=== PATIENT | male | born 1990 | race Caucasian/White ===

== ENCOUNTER 2017-01-03 02:01 | Emergency (ER) | payer OTHER ==
[~2017-01-03] VITALS: Ht 182.9 cm; Wt 154.5 kg
[2017-01-03 02:05] VITALS: Ht 182.9 cm; Wt 154.5 kg
--- NOTE | 2017-01-03 02:44 | ERD ---
ER Documentation Chief Complaint Date/Time DATE: 01/03/17 TIME: 02:40 Chief Complaint sp head injury 3 days ago a headboard fell on his head no ko, c/o headache HPI Patient is a 26-year-old male who presents with sudden onset, constant, mild to moderate right parietal head pain for 4 days. The patient states that he was at work and a cutting board made of plastic fell on his head from a storage area above head height. There is no loss of consciousness, no wheezing, no vomiting. Since that time he has had focal pain at the site of trauma. He denies generalized headache, loss of balance. He does not take any blood thinners or antiplatelet agents. Been taking Motrin for pain. He states that the pain is exacerbated by touching the affected area. ROS All systems reviewed and are negative except as per history of present illness. Allergies Allergies: Coded Allergies: No Known Allergy (Unverified , 01/03/17) PMhx/Soc Past medical history: None Past surgical history: None Social history: Occasional alcohol, smokes cannabis, no tobacco Medical and Surgical Hx: pt denies Medical Hx, pt denies Surgical Hx Hx Alcohol Use: No Hx Substance Use: No Hx Tobacco Use: No Smoking Status: Never smoker FmHx Family History: No coronary disease, No diabetes Physical Exam Vitals Vital Signs Date Time Temp Pulse Resp B/P Pulse Ox O2 Delivery O2 Flow Rate FiO2 01/03/17 02:05 98.3 110 20 154/90 99 Physical Exam Const: Alert, no acute distress Head: No hematoma. Mild tenderness over the right parietal area Eyes: Normal Conjunctiva, no pallor, no icterus. Pupils equal round reactive to light ENT: Normal External Ears, Nose and Mouth. Neck: Full range of motion..~ No meningismus. No midline tenderness Resp: Clear to auscultation bilaterally Cardio: Regular rate and rhythm, no murmurs Skin: No petechiae or rashes Ext: No cyanosis, or edema Neur: Awake and alert, cranial nerves II through XII intact bilaterally, strength and sensation full in 4 extremities, and normal Romberg, normal gait Psych: Normal Mood and Affect Procedures/MDM MDM: Patient is a 26-year-old male who had a minor head injury with a cutting board falling on his head. There were no high risk features to the injury. He complains only of focal pain at the site of contact. There is no visible hematoma. The event occurred 3 or 4 days ago, and the patient is not having any progression of symptoms. His main concern is that he still continues to have some focal pain. I advised him to continue taking ibuprofen, and counseled him on return precautions. Departure Diagnosis: Primary Impression: Scalp contusion Condition: Stable Patient Instructions: Scalp Contusion, No Wake Up Additional Instructions: Return to the ER for worsening headache, vomiting, loss of balance, or other concerns. HANDY BLEDSOE MD January 03, 2017 02:43
== END 2017-01-03 02:56 | disposition home or self-care (01) ==
LOC: FTE 02:01
DX: S00.03XA Contusion of scalp, initial encounter (principal); W20.8XXA Other cause of strike by thrown, projected or falling object, initial encounter; Y92.89 Other specified places as the place of occurrence of the external cause
CPT/HCPCS: 99283

== ENCOUNTER 2017-12-26 23:00 | Emergency (ER) | END 2017-12-27 08:08 | disposition home or self-care (01) ==